=== PATIENT | female | born 1990 | race Caucasian/White ===

== ENCOUNTER 2018-07-08 22:25 | Emergency (ER) | payer SELFPAY ==
--- OUTSIDE RECORDS SUMMARY | 2018-07-08 22:27 | XMS REPORT | Clinical Summary ---
Author Author [facility] Organization [facility] Address Unknown Phone Unavailable Care Team Providers Care Crystal Report Developer Name Role Phone Kyle Sheppard MD PCP Allergies Comments Active Allergy Reactions Severity Noted Date Escitalopram Oxalate Nausea Only High 06/11/2018 Medications End Date Status Medication Sig Dispensed Refills Start Date Active varenicline (CHANTIX) 0.5 Start taking 332 tablet 0 mg tabletIndications: this 9 Encounter for smoking medication 1 cessation counseling week prior to setting a quit date for smoking. Stop smoking on day 8. Days 1 to 3: take 1 tablet once daily Days 4 to 7: take 1 tablet twice daily Day 8 to 84: take 2 tablets twice daily. Active amitriptyline (ELAVIL) 10 Take one tab 60 tablet 1 mg tabletIndications: PO qhs x 4 9 Somatic symptom disorder days, then increase to two tabs PO qhs for anxiety. 05/27/2018 Discontinued meclizine (ANTIVERT) 25 Take 0.5 10 tablet 0 mg TabIndications: tablets by 9 Dizziness mouth 2 times daily. 05/27/2018 Discontinued ibuprofen (MOTRIN) 800 mg Take 1 tablet 30 tablet 0 tabletIndications: by mouth 9 Nonintractable headache, every 8 hours unspecified chronicity as needed for pattern, unspecified Pain. headache type 06/11/2018 Discontinued escitalopram (LEXAPRO) 10 Take 1 tablet 90 tablet 1 mg tabletIndications: by mouth 9 Generalized anxiety daily. disorder with panic attacks 06/25/2018 Discontinued busPIRone (BUSPAR) 10 mg Take 1 tablet 90 tablet 1 tabletIndications: by mouth 3 9 Generalized anxiety times daily disorder with panic as needed attacks (Anxiety). 06/27/2018 nitrofurantoin Take 1 40 capsule 0 (MACRODANTIN) 100 mg capsule by 9 capsuleIndications: mouth 4 times Dysuria daily for 10 days. 06/27/2018 Discontinued amitriptyline (ELAVIL) 10 Take one tab 60 tablet 1 mg tabletIndications: PO qhs, then 9 Somatic symptom disorder increase to two tabs PO qhs for anxiety. Active Problems Problem Noted Date Tinnitus of both ears 06/11/2018 Intermittent palpitations 06/11/2018 Generalized anxiety disorder with panic attacks 05/27/2018 Encounters Care Team Description Date Type Specialty Dominique York MD Somatic symptom disorder 06/27/2018 Orders Only Psychiatry Dominique York MD Medications 06/27/2018 Telephone Psychiatry Marv Moreau MD History of chest pain (Primary Dx); Need for influenza vaccination; Encounter for smoking cessation counseling; Need for Tdap vaccination; Blurry vision 06/26/2018 Office Visit Family Practice Marv Moreau MD Blurry vision; History of chest pain 06/26/2018 Orders Only Family Practice Dominique York MD Somatic symptom disorder (Primary Dx) 06/25/2018 Office Visit Psychiatry 06/21/2018 Travel Chest pain, unspecified type (Primary Dx) 06/17/2018 Emergency Emergency Medicine 06/17/2018 Travel Jenny Romero RN 06/17/2018 Nurse Triage Cough 06/11/2018 Ancillary Radiology Procedure Kyle Sheppard MD Need for influenza vaccination (Primary Dx); Tinnitus of both ears; Generalized anxiety disorder with panic attacks; Cough; Dysuria; Intermittent palpitations 06/11/2018 Office Visit Family Practice Kyle Sheppard MD Generalized anxiety disorder with panic attacks 06/11/2018 Orders Only Family Practice Kyle Sheppard MD Need for influenza vaccination (Primary Dx); Generalized anxiety disorder with panic attacks 05/27/2018 Office Visit Family Kyle Azul MD Encounter to establish care (Primary Dx); Chest pain in adult; Dizziness; Viral syndrome 05/21/2018 Office Visit Family Practice 05/21/2018 Travel Raoul Duke NP 05/11/2018 Hospital Radiology Encounter Yin Esqueda MD Chest pain in adult (Primary Dx); Dizziness; Elevated blood pressure reading; Nonintractable headache, unspecified chronicity pattern, unspecified headache type 05/11/2018 Emergency Emergency Medicine 05/10/2018 Travel after 07/07/2017 Immunizations Name Dates Previously Given Next Due Influenza, 05/27/2018 (Deferred: Patient Refused) Vaccine<FLUCELVAX>(Multi- Dose) Family History Medical History Relation Name Comments Unknown Fam Hx Mother Relation Name Status Comments Mother Social History Date Tobacco Use Types Packs/Day Years Used Current Every Day Smoker Smokeless Tobacco: Never Used Tobacco Cessation: Ready to Quit: No; Counseling Given: Yes Alcohol Use Drinks/Week oz/Week Comments Yes socia; Sex Assigned at Date Recorded Not on file Industry Job Start Date Occupation Not on file Not on file Not on file Travel End Travel History Travel Start No recent travel history available. Last Filed Vital Signs Time Taken Vital Sign Reading 06/26/2018 3:41 PM CDT Blood Pressure 127/84 06/26/2018 3:41 PM CDT Pulse 105 06/26/2018 3:41 PM CDT Temperature 36.7 C (98 F) 06/26/2018 3:41 PM CDT Respiratory Rate 20 06/25/2018 2:26 PM CDT Oxygen Saturation 94% - Inhaled Oxygen - Concentration 06/26/2018 3:41 PM CDT Weight 102.5 kg (226 lb) 06/26/2018 3:41 PM CDT Height 149.9 cm (4' 11") 06/26/2018 3:41 PM CDT Body Mass Index 45.65 Plan of Treatment Care Team Description Date Type Specialty Dominique York MD [address] [place] [address] [phone] 07/29/2018 Office Visit Psychiatry Kyle Sheppard MD [address] [place] [address] [phone] 08/28/2018 Appointment Lizeth Melton OD [address] [place] [address] 09/23/2018 Office Visit Ophthalmology Health Maintenance Due Date Last Done Comments Cervical Cancer Scrn (3 2011 Yrs) IMM Influenza Seasonal 01/14/2018 Oct to June (>/=19 yrs) Procedures Comments Procedure Name Priority Date/Time Associated Diagnosis XRAY CHEST 2 VIEWS STAT 06/17/2018 Chest pain, unspecified 1:36 PM TEXTILE CONVERSION MANAGER type TROPONIN I POC Routine 06/17/2018 1:23 PM TEXTILE CONVERSION MANAGER BMP POC Routine 06/17/2018 1:22 PM TEXTILE CONVERSION MANAGER 12 LEAD EKG Routine 06/17/2018 12:37 PM TEXTILE CONVERSION MANAGER XRAY CHEST 2 VIEWS Routine 06/11/2018 Cough 3:32 PM TEXTILE CONVERSION MANAGER URINE CULTURE Routine 06/11/2018 Dysuria 3:22 PM TEXTILE CONVERSION MANAGER UA CHEMISTRIES Routine 06/11/2018 Dysuria 3:22 PM TEXTILE CONVERSION MANAGER FSH/LH Routine 06/11/2018 Generalized anxiety 3:21 PM TEXTILE CONVERSION MANAGER disorder with panic attacks CBC/DIFF Routine 05/21/2018 Encounter to establish 11:29 AM TEXTILE CONVERSION MANAGER care COMPREHENSIVE METABOLIC Routine 05/21/2018 Encounter to establish PANEL(DBIL NOT INCLUDED) 11:29 AM TEXTILE CONVERSION MANAGER care HEMOGLOBIN A1C Routine 05/21/2018 Encounter to establish 11:29 AM TEXTILE CONVERSION MANAGER care LIPID PROFILE Routine 05/21/2018 Encounter to establish 11:29 AM TEXTILE CONVERSION MANAGER care TSH Routine 05/21/2018 Encounter to establish 11:29 AM TEXTILE CONVERSION MANAGER care POCT URINE DIPSTICK - STAT 05/11/2018 1:44 AM TEXTILE CONVERSION MANAGER BMP POC Routine 05/11/2018 1:44 AM TEXTILE CONVERSION MANAGER UA CHEMISTRIES STAT 05/11/2018 1:40 AM TEXTILE CONVERSION MANAGER HIV-1/HIV-2 ROUTINE STAT 05/11/2018 SCREENING 1:37 AM TEXTILE CONVERSION MANAGER XRAY CHEST 2 VIEWS STAT 05/11/2018 Chest pain in adult 12:53 AM TEXTILE CONVERSION MANAGER 12 LEAD EKG Routine 05/11/2018 12:07 AM TEXTILE CONVERSION MANAGER after 07/07/2017 Results * XRAY CHEST 2 VIEWS (06/17/2018 1:36 PM TEXTILE CONVERSION MANAGER) Only the most recent of 3 results within the time period is included. Impressions Performed At IMPRESSION: SMS 1.No acute abnormality. This [facility] radiology report is a preliminary resident dictation until finalized by an attending.Changes to this preliminary report may occur in an additional preliminary or finalized version. Dictated By: Flavio Campbell MD, 06/17/2018 1:38 PM I have reviewed the study and agree with the findings in this report. Signed By: Silvio Zacarias MD, 06/17/2018 1:50 PM Narrative Performed At EXAM: XR CHEST 2 VIEWS [facility] DATE: 06/17/2018 1:36 PM INDICATION: Pleuritic chest pain. Chest pain, unspecified type COMPARISON: Chest x-ray on 06/11/2018 TECHNIQUE: PA and lateral chest radiographs FINDINGS: Lines, tubes and hardware: None. Lungs and pleura: The lungs are clear. The costophrenic sulci are sharp, without pleural effusion. No pneumothorax is identified. Heart and mediastinum: The heart size is normal. The mediastinal contours are normal. Pulmonary vascularity is normal. Bones: No acute bony abnormality. Procedure Note Interface, Rad/Mammog In - 06/17/2018 1:55 PM TEXTILE CONVERSION MANAGER EXAM: XR CHEST 2 VIEWS DATE: 06/17/2018 1:36 PM INDICATION: Pleuritic chest pain. Chest pain, unspecified type COMPARISON: Chest x-ray on 06/11/2018 TECHNIQUE: PA and lateral chest radiographs FINDINGS: Lines, tubes and hardware: None. Lungs and pleura: The lungs are clear. The costophrenic sulci are sharp, without pleural effusion. No pneumothorax is identified. Heart and mediastinum: The heart size is normal. The mediastinal contours are normal. Pulmonary vascularity is normal. Bones: No acute bony abnormality. IMPRESSION IMPRESSION: 1. No acute abnormality. This [facility] radiology report is a preliminary resident dictation until finalized by an attending. Changes to this preliminary report may occur in an additional preliminary or finalized version. Dictated By: Flavio Campbell MD, 06/17/2018 1:38 PM I have reviewed the study and agree with the findings in this report. Signed By: Silvio Zacarias MD, 06/17/2018 1:50 PM Performing Organization Address City/State/Zipcode Phone Number [facility] * TROPONIN I POC (06/17/2018 1:23 PM TEXTILE CONVERSION MANAGER) Troponin POC 0.00 0.00 - 0.08 ng/mL [facility] MAIN-STATION 1 Performing Organization Address City/[facility] Phone Number [facility] MAIN-STATION 1 * BMP POC (06/17/2018 1:22 PM TEXTILE CONVERSION MANAGER) Only the most recent of 2 results within the time period is included. CO2 POC 25Comment: Physician Notified 21 - 32 mmol/L [facility] MAIN-STATION 1 Chloride POC 105 98 - 107 mmol/L [facility] MAIN-STATION 1 Potassium POC 4.3 3.50 - 5.10 mmol/L [facility] MAIN-STATION 1 Sodium POC 143 136 - 145 mmol/L [facility] MAIN-STATION 1 Glucose POC 95 74 - 106 mg/dL [facility] MAIN-STATION 1 Urea Nitrogen 9 7 - 18 mg/dL [facility] P[facility] MAIN-STATION 1 Creatinine POC 0.7 0.6 - 1.3 mg/dL [facility] MAIN-STATION 1 Calcium Ionized 1.16 1.15 - 1.29 mmol/L [facility] MAIN-STATION 1 Hemoglobin POC 16.3 (H) 12.0 - 16.0 g/dL [facility] MAIN-STATION 1 Hematocrit POC 48.0 (H) 37.0 - 47.0 % [facility] MAIN-STATION 1 GFR, Estimated >60 mL/min/1.73 m2 [facility] MAIN-STATION 1 GFR, Estim, >60 mL/min/1.73 m2 [facility] Afr-Am MAIN-STATION 1 Performing Organization Address City/[facility] Phone Number [facility] MAIN-STATION 1 * 12 LEAD EKG (06/17/2018 12:37 PM TEXTILE CONVERSION MANAGER) 12 LEAD EKG FOR [facility] Date:2018-06-17 Pat Name: SCOOTER MARTINEZ Department: 6520 Room: Gender: Early Intervention Specialist: [id number] :1989-04 0- Requested By: ALEXEI Alamo Order Number: [id number] Reading MD: Jorge CASTANEDA Measurements Intervals [place] Rate: 90 P:42 KS: 156 QRS: 58 QRSD: 85 T:35 QT: 330 QTc:405 Interpretive Statements SINUS RHYTHM Minor Non-specific ST-T changes Otherwise Normal ECG Electronically Signed On 06-17-2018 17:01:19 TEXTILE CONVERSION MANAGER by Jorge CASTANEDA Performing Organization Address [facility] Phone Number SMS * UA CHEMISTRIES (06/11/2018 3:22 PM TEXTILE CONVERSION MANAGER) Only the most recent of 2 results within the time period is included. Color Yellow [facility] MAIN-STATION 3 Clarity Clear [facility] MAIN-STATION 3 Spec [place] 1.025 1.001 - 1.035 [facility] MAIN-STATION 3 pH 6.0 5 - 8 [facility] MAIN-STATION 3 Protein Negative NEG [facility] MAIN-STATION 3 Glucose Negative NEG [facility] MAIN-STATION 3 Ketone Negative NEG [facility] MAIN-STATION 3 Bilirubin Negative NEG [facility] MAIN-STATION 3 Nitrate Negative NEG [facility] MAIN-STATION 3 Urobilinogen <1.0 0.2 - 1.0 EU/dL [facility] MAIN-STATION 3 Leukocyte Negative NEG [facility] MAIN-STATION 3 Blood Negative NEG [facility] MAIN-STATION 3 Specimen Urine Performing Organization Address [facility] Phone Number MISYS [facility] MAIN-STATION 3 * URINE CULTURE (06/11/2018 3:22 PM TEXTILE CONVERSION MANAGER) Spec Urine [facility] Description Order Comments None [facility] Culture Skin roberto carlos organisms present, BT MICROBIOLOGY suggests contamination; please recollect Report Status Final 06/13/2018 BT MICROBIOLOGY Specimen Urine - CLEAN CATCH URINE Performing Organization Address [facility] Phone Number [facility] BT MICROBIOLOGY * FSH/LH (06/11/2018 3:21 PM TEXTILE CONVERSION MANAGER) FSH 5.75 mIU/mL [facility] MAIN-STATION Comment: 1 REFERENCE RANGE FEMALE: POST MENOPAUSAL:16.74-113.59 Mid-follicular:3.85-8.78 Female Mid-cycle:4.54-22.51 Mid-luteal:1.79-5.12 LH 11.02 mIU/mL [facility] MAIN-STATION Comment: 1 REFERENCE RANGE FEMALE: POST MENOPAUSAL 10.87-58.64 Mid-follicular2.12-10.89 Mid-cycle 4.54-22.51 Mid-luteal1.79-5.1 2 Specimen Blood Performing Organization Address City/[facility] Phone Number [facility] BT MAIN-STATION 1 * HEMOGLOBIN A1C (05/21/2018 11:29 AM TEXTILE CONVERSION MANAGER) Hemoglobin A1c 5.9 4.3 - 6.1 % BT DIAGNOSTIC IMMUNOLOGY Est Average 122.6 mg/dL BT DIAGNOSTIC Gluc IMMUNOLOGY Specimen Blood Performing Organization Address [facility] Phone Number [facility] BT DIAGNOSTIC IMMUNOLOGY * COMPREHENSIVE METABOLIC PANEL(DBIL NOT INCLUDED) (05/21/2018 11:29 AM TEXTILE CONVERSION MANAGER) Albumin 4.3 3.7 - 5.3 g/dL BT MAIN-STATION 1 Calcium 9.7 8.6 - 10.3 mg/dL BT MAIN-STATION 1 CO2 22 21 - 31 mmol/L BT MAIN-STATION 1 Chloride 105 98 - 107 mmol/L BT MAIN-STATION 1 Creatinine 0.70 0.6 - 1.2 mg/dL [facility] MAIN-STATION 1 Glucose 94 70 - 110 mg/dL [facility] MAIN-STATION 1 Alk Phos 64 34 - 104 U/L BT MAIN-STATION 1 Potassium 4.4 3.5 - 5.1 mmol/L BT MAIN-STATION 1 Sodium 140 136 - 145 mmol/L BT MAIN-STATION 1 ALT 27 7 - 52 U/L BT MAIN-STATION 1 AST 19 13 - 39 U/L BT MAIN-STATION 1 Urea Nitrogen 10 7 - 25 mg/dL [facility] MAIN-STATION 1 T Bilirubin 0.5 0.2 - 1.2 mg/dL BT MAIN-STATION 1 T Protein 7.3 6.0 - 8.3 g/dL BT MAIN-STATION 1 GFR, Estimated >60 mL/min/1.73 m2 BT MAIN-STATION 1 GFR, Estim, >60 mL/min/1.73 m2 BT MAIN-STATION Afr-Am 1 Anion Gap 13 BT MAIN-STATION 1 Specimen Blood Performing Organization Address [facility]/Zipcode Phone Number MISYS BT MAIN-STATION 1 * TSH (05/21/2018 11:29 AM TEXTILE CONVERSION MANAGER) TSH 1.48 0.57 - 3.74 uIU/mL BT MAIN-STATION 1 Specimen Blood Performing Organization Address [facility] Phone Number [facility] BT MAIN-STATION 1 * LIPID PROFILE (05/21/2018 11:29 AM TEXTILE CONVERSION MANAGER) Cholesterol 143 mg/dL [facility] MAIN-STATION Comment: 1 REFERENCE RANGE: Desirable: <200 mg/dL Borderline: 200-240 mg/dL High Risk: >240 mg/dL Triglyceride 105 <150 mg/dL [facility] MAIN-STATION Comment: 1 REFERENCE RANGE: Normal: <150 mg/dL Borderline High: 150-199 mg/dL High: 200-499 mg/dL Very High: >ua=867 mg/dL HDL 28 mg/dL [facility] MAIN-STATION Comment: 1 Increased CHD risk: <40 mg/dL Decreased CHD risk: >60 mg/dL LDL 94 mg/dL [facility] MAIN-STATION Comment: 1 REFERENCE RANGE: Optimal: <100 mg/dL Near Optimal: 100-129 mg/dL Borderline High: 130-159 mg/dL High: 160-189 mg/dL Very High: >sn=927 mg/dL Specimen Blood Performing Organization Address City/State/Zipcode Phone Number MISYS BT MAIN-STATION 1 * CBC/DIFF (05/21/2018 11:29 AM TEXTILE CONVERSION MANAGER) Pathologist [facility] WBC 8.6 4.5 - 11.0 K/uL BT MAIN-STATION 2 RBC 5.26 4.20 - 5.40 M/uL BT MAIN-STATION 2 Hemoglobin 15.6 12.0 - 16.0 g/dL BT MAIN-STATION 2 Hematocrit 47.3 (H) 37.0 - 47.0 % BT MAIN-STATION 2 MCV 90 82 - 92 fL BT MAIN-STATION 2 MCH 29.7 27.0 - 32.0 pg BT MAIN-STATION 2 MCHC 33.0 32.0 - 36.0 g/dL BT MAIN-STATION 2 RDW 38.4 36.4 - 46.3 fL BT MAIN-STATION 2 Platelet 318 150 - 400 K/uL BT MAIN-STATION 2 Mean Platelet 11.5 9.4 - 12.4 fL BT MAIN-STATION Volume 2 Percent NRBC 0.0 BT MAIN-STATION 2 Absolute NRBC 0.00 BT MAIN-STATION 2 Neutrophil 47.9 34.0 - 70.0 % BT MAIN-STATION 2 Lymphocyte 41.2 20.0 - 50.0 % BT MAIN-STATION 2 Monocyte 6.4 5.0 - 12.0 % BT MAIN-STATION 2 Eosinophil 2.9 0.7 - 5.0 % BT MAIN-STATION 2 Basophil 1.1 0.1 - 1.2 % BT MAIN-STATION 2 Pct Immat Gran 0.5 0.0 - 0.5 BT MAIN-STATION 2 Neutrophil, Abs 4.10 1.56 - 6.13 K/uL BT MAIN-STATION 2 Lymphocyte, Abs 3.52 1.18 - 3.74 K/uL BT MAIN-STATION 2 Monocyte, Abs 0.55 (H) 0.24 - 0.36 K/uL BT MAIN-STATION 2 Eosinophil, Abs 0.25 0.04 - 0.36 K/uL BT MAIN-STATION 2 Basophil, Abs 0.09 (H) 0.01 - 0.08 K/uL BT MAIN-STATION 2 Absol Immat 0.04 (H) 0.00 - 0.03 K/uL BT MAIN-STATION Gran 2 Specimen Blood Performing Organization Address City/State/Zipcode Phone Number [facility] BT MAIN-STATION 2 * POCT URINE DIPSTICK - (05/11/2018 1:44 AM TEXTILE CONVERSION MANAGER) PASS Control NEGATIVE * HIV-1/HIV-2 ROUTINE SCREENING (05/11/2018 1:37 AM TEXTILE CONVERSION MANAGER) HIV-1/HIV-2 Negative NEG [facility] Performing Organization Address City/State/Zipcode Phone Number [facility] B[facility]OD [facility] * 12 LEAD EKG (05/11/2018 12:07 AM TEXTILE CONVERSION MANAGER) 12 LEAD EKG FOR SMS [facility] Test Date:2018-05-11 Pat Name: SCOOTER MARTINEZ Department: 6520 Room: Gender: F Early Intervention Specialist: [id number] :1989-04 Requested By: MARGARITA Madrid Order Number: [id number] Jimmy MD: Marilyn Saeed Measurements Intervals [place] Rate: 114 P: 38 KS: 155 QRS: 53 QRSD: 88 T:34 QT: 319 QTc:439 Interpretive Statements SINUS TACHYCARDIA ABNORMAL RHYTHM ECG Electronically Signed On 05-13-2018 12:53:28 TEXTILE CONVERSION MANAGER by Marilyn Saeed Performing Organization Address City/State/Zipcode Phone Number [facility] after 07/07/2017 Insurance Type Payer Benefit Subscriber ID Effective Phone Address Plan / Dates Group [place]ICA[place] [id number] xxxxxxxxx 2018-P [id number] [facility] [id number] [facility] SELF-PAY [facility] xxxxxxxxx [phone]- [phone] [address] [place] [address]
--- OUTSIDE RECORDS SUMMARY | 2018-07-08 22:27 | XMS REPORT | Clinical Summary ---
Author Author [facility] Address Unknown Phone Unavailable Care Team Providers Care Casing Puller Name Role Phone Asked, No Pcp PCP Unavailable Allergies No Known Allergies Medications End Date Status Medication Sig Dispensed Refills Start Date 07/19/2018 Active nicotine (NICODERM CQ) 21 Place 1 patch 30 patch 0 06/19/ mg/24 hr on the skin 9 daily for 30 days. 10/17/2017 acetaminophen-codeine Take 1 tablet 10 tablet 0 (TYLENOL WITH CODEINE #3) by mouth 8 300-30 mg per tablet every 6 (six) hours as needed for moderate pain for up to 3 days. 10/21/2017 clindamycin (CLEOCIN) 300 Take 1 28 capsule 0 MG capsule capsule (300 8 mg total) by mouth 4 (four) times a day for 7 days. 05/17/2018 naproxen (NAPROSYN) 500 Take 1 tablet 60 tablet 0 04/17/201 MG tablet (500 mg 9 total) by mouth 2 (two) times a day with meals for 30 days. 05/02/2018 acetaminophen-codeine Take 1-2 15 tablet 0 201 (TYLENOL WITH CODEINE #3) tablets by 9 300-30 mg per tablet mouth every 6 (six) hours as needed for moderate pain for up to 15 days. 05/30/2018 acetaminophen-codeine Take 1-2 15 tablet 0 05/15/201 (TYLENOL WITH CODEINE #3) tablets by 9 300-30 mg per tablet mouth every 6 (six) hours as needed for moderate pain for up to 15 days. 06/25/2018 ALPRAZolam (XANAX) 0.25 Take 1 tablet 14 tablet 0 06/18/201 MG tablet (0.25 mg 9 total) by mouth 2 (two) times a day as needed for anxiety for up to 7 days. Active Problems Problem Noted Date Chest pain, rule out acute myocardial infarction 06/17/2018 Encounters Care Team Description Date Type Specialty Jeremiah Rincon MD Bavare, Arusha Amod, MD Chest pain, rule out acute myocardial infarction (Primary Dx) 06/17/2018 Emergency General Internal Medicine - 06/18/2018 Jeremiah Rincon MD 06/05/2018 Emergency Emergency Medicine González Turner Jr., MD Chest pain, unspecified type (Primary Dx) 05/25/2018 Emergency Emergency Medicine Jeremiah Rincon MD Costochondritis, acute (Primary Dx) 05/15/2018 Emergency Emergency Medicine Jeremiah Rincon MD Costochondritis (Primary Dx) 04/17/2018 Emergency Emergency Medicine González Turner Jr., MD Abscess of left leg (Primary Dx); Cellulitis of left leg 10/14/2017 Emergency Emergency Medicine after 07/07/2017 Family History Medical History Relation Name Comments Hypertension Father Hypertension Mother Stroke Mother Relation Name Status Comments Brother Alive Father Alive Mother Alive Sister Alive Social History Date Tobacco Use Types Packs/Day Years Used Current Every Day Smoker Cigarettes 1 10 Smokeless Tobacco: Never Used Tobacco Cessation: Ready to Quit: No; Counseling Given: Yes Alcohol Use Drinks/Week oz/Week Comments No Sex Assigned at Date Recorded Not on file Industry Job Start Date Occupation Not on file Not on file Not on file Travel End Travel History Travel Start No recent travel history available. Last Filed Vital Signs Time Taken Vital Sign Reading 06/18/2018 1:44 PM OIL LABORATORY ANALYST Blood Pressure 132/87 06/18/2018 1:44 PM OIL LABORATORY ANALYST Pulse 73 06/18/2018 1:44 PM OIL LABORATORY ANALYST Temperature 36.3 C (97.3 F) 06/18/2018 1:44 PM OIL LABORATORY ANALYST Respiratory Rate 16 06/18/2018 1:44 PM OIL LABORATORY ANALYST Oxygen Saturation 98% - Inhaled Oxygen - Concentration 06/18/2018 1:43 AM OIL LABORATORY ANALYST Weight 103 kg (227 lb 15.3 oz) 06/17/2018 9:18 PM OIL LABORATORY ANALYST Height 157.5 cm (5' 2") 06/18/2018 1:43 AM OIL LABORATORY ANALYST Body Mass Index 41.69 Plan of Treatment Health Maintenance Due Date Last Done Comments CERVICAL CANCER SCREENING 2011 INFLUENZA VACCINE 11/14/2017 Procedures Comments Procedure Name Priority Date/Time Associated Diagnosis ECHOCARDIOGRAM 2D Routine 06/18/2018 COMPLETE W MMODE SPECTRAL 11:55 AM OIL LABORATORY ANALYST COLOR DOPPLER (08029) TROPONIN Timed 06/18/2018 11:22 AM OIL LABORATORY ANALYST TROPONIN Routine 06/18/2018 7:19 AM OIL LABORATORY ANALYST ESTIMATED GFR Routine 06/18/2018 7:19 AM OIL LABORATORY ANALYST LIPID PANEL Routine 06/18/2018 7:19 AM OIL LABORATORY ANALYST BASIC METABOLIC PANEL Routine 06/18/2018 7:19 AM OIL LABORATORY ANALYST HC COMPLETE BLD COUNT Routine 06/18/2018 W/AUTO DIFF 7:19 AM OIL LABORATORY ANALYST ECG 12-LEAD STAT 06/18/2018 4:37 AM OIL LABORATORY ANALYST ESTIMATED GFR STAT 06/17/2018 11:00 PM OIL LABORATORY ANALYST B NATRIURETIC PEPTIDE STAT 06/17/2018 11:00 PM OIL LABORATORY ANALYST TROPONIN STAT 06/17/2018 11:00 PM OIL LABORATORY ANALYST COMPREHENSIVE METABOLIC STAT 06/17/2018 PANEL 11:00 PM OIL LABORATORY ANALYST HC COMPLETE BLD COUNT STAT 06/17/2018 W/AUTO DIFF 11:00 PM OIL LABORATORY ANALYST XR CHEST 2 VW STAT 06/17/2018 10:11 PM OIL LABORATORY ANALYST ECG ED PRELIMINARY Routine 06/17/2018 INTERPRETATION 9:26 PM OIL LABORATORY ANALYST ECG 12-LEAD STAT 06/17/2018 9:23 PM OIL LABORATORY ANALYST ECG ED PRELIMINARY Routine 05/25/2018 INTERPRETATION 7:42 PM OIL LABORATORY ANALYST XR CHEST 2 VW STAT 05/25/2018 7:15 PM OIL LABORATORY ANALYST ESTIMATED GFR STAT 05/25/2018 5:40 PM OIL LABORATORY ANALYST B NATRIURETIC PEPTIDE STAT 05/25/2018 5:40 PM OIL LABORATORY ANALYST TROPONIN STAT 05/25/2018 5:40 PM OIL LABORATORY ANALYST COMPREHENSIVE METABOLIC STAT 05/25/2018 PANEL 5:40 PM OIL LABORATORY ANALYST HC COMPLETE BLD COUNT STAT 05/25/2018 W/AUTO DIFF 5:40 PM OIL LABORATORY ANALYST ECG 12-LEAD STAT 05/25/2018 5:04 PM OIL LABORATORY ANALYST ESTIMATED GFR STAT 05/15/2018 4:36 AM OIL LABORATORY ANALYST B NATRIURETIC PEPTIDE STAT 05/15/2018 4:36 AM OIL LABORATORY ANALYST TROPONIN STAT 05/15/2018 4:36 AM OIL LABORATORY ANALYST COMPREHENSIVE METABOLIC STAT 05/15/2018 PANEL 4:36 AM OIL LABORATORY ANALYST HC COMPLETE BLD COUNT STAT 05/15/2018 W/AUTO DIFF 4:36 AM OIL LABORATORY ANALYST XR CHEST 2 VW STAT 05/15/2018 3:42 AM OIL LABORATORY ANALYST ECG ED PRELIMINARY Routine 05/15/2018 INTERPRETATION 3:22 AM OIL LABORATORY ANALYST ECG 12-LEAD STAT 05/15/2018 3:18 AM OIL LABORATORY ANALYST CT ANGIOGRAM PE CHEST STAT 04/17/2018 6:07 AM OIL LABORATORY ANALYST ECG ED PRELIMINARY Routine 04/17/2018 INTERPRETATION 5:00 AM OIL LABORATORY ANALYST XR CHEST 2 VW STAT 04/17/2018 4:33 AM OIL LABORATORY ANALYST D-DIMER STAT 04/17/2018 4:08 AM OIL LABORATORY ANALYST ESTIMATED GFR STAT 04/17/2018 4:08 AM OIL LABORATORY ANALYST HCG QUALITATIVE, SERUM STAT 04/17/2018 SCREEN 4:08 AM OIL LABORATORY ANALYST B NATRIURETIC PEPTIDE STAT 04/17/2018 4:08 AM OIL LABORATORY ANALYST TROPONIN STAT 04/17/2018 4:08 AM OIL LABORATORY ANALYST COMPREHENSIVE METABOLIC STAT 04/17/2018 PANEL 4:08 AM OIL LABORATORY ANALYST HC COMPLETE BLD COUNT STAT 04/17/2018 W/AUTO DIFF 4:08 AM OIL LABORATORY ANALYST ECG 12-LEAD STAT 04/17/2018 2:45 AM OIL LABORATORY ANALYST PA DRAIN SKIN ABSCESS Routine 10/14/2017 SIMPLE 7:28 AM CDT after 07/07/2017 Results * Echocardiogram complete w contrast and 3D if needed (06/18/2018 11:55 AM OIL LABORATORY ANALYST) Ao Root Diameter 2.96 cm [facility] AoV Area, Vmax 2.83 cm2 [facility] AoV Area, VTI 2.56 cm2 [facility] AoV Mean PG 3.32 mmHg [facility] AoV Peak PG 5.78 mmHg [facility] AoV Vmax 1.20 m/s [facility] AoV VTI 0.23 m [facility] BSA Pool 2.21 m2 [facility] BSA 2.02 m2 [facility] IVS,d 0.84 cm [facility] IVS/LVPW,2D 1.07 [facility] Left Atrium Dimension 3.07 cm [facility] Anterior LV,d 4.32 cm [facility] LV EF,2D 50.85 % [facility] LV,s 3.41 cm [facility] LVOT area 2.66 cm2 [facility] LVOT Diam,S 1.84 cm [facility] LVOT Vmax 1.27 m/s [facility] LVOT VTI 0.22 m [facility] LVPWD,d 0.79 cm [facility] PV Mean Grad 2.31 mmHg [facility] PV Pk Grad 2.99 mmHg [facility] PV VMAX 0.69 m/s [facility] PV VTI 0.22 m [facility] TR Vpeak 1.76 mm/s [facility] MV E A ratio 1.37 [facility] TR pk grad 12.46 mmHg [facility] AoV area i VTI BSA [place] 1.27 cm2/m2 [facility] PV Vmn 0.71 [facility] BMI 41.52 kg/m2 [facility] E wave decelartion time 216.22 msec [facility] MV Peak A Jose 0.74 m/s [facility] MV valve area p 1/2 3.51 cm2 [facility] method MV Peak E Jose 1.02 m/s [facility] MV stenosis pressure 1/2 62.70 ms [facility] time AV LVOT peak gradient 6.48 mmHg [facility] Ascending aorta 2.45 cm [facility] Ao Root Diameter 2.96 cm [facility] MV mean gradient 1.69 mmHg [facility] LV SYS VOL 47.81 ml [facility] LV RAMOS VOL 84.09 ml [facility] LA area s A4C 15.86 cm2 [facility] LV SI Teich 2D 17.98 ml/m2 [facility] LV SV Teich 2D 36.28 ml [facility] LV Vol s Teich PSAX 47.81 ml [facility] LVOT CI 2.50 l/min/m2 [facility] LVOT CO 5.04 l/min [facility] LVOT HR for LVOT CO 84.08 bpm [facility] LVOT SI 29.74 ml/m2 [facility] MR peak grad 3.37 mmHg [facility] MV Vmax 0.92 m [facility] MV VTI Tips 0.20 m [facility] BSA [place] 2.18 m2 [facility] AoV Vmn 0.86 [facility] IVS s 2D 0.91 [facility] LV FS Teich 2D 21.08 [facility] MV AE ratio 0.73 [facility] LV FS Cube 2D 21.08 [facility] LVOT Vmn 0.80 [facility] Pt Size 157.48 [facility] Pt Wt 102.97 [facility] Aov area Vmn 2.49 cm2 [facility] LVOT mean grad 2.98 mmHg [facility] MAX Pred HR 191.64 [facility] 85 of MPHR 162.89 [facility] AoV area I VMN bsa 1.23 cm2/m2 [facility] Calc MPHR 191.64 bpm [facility] IVS pct thck PLAX 8.03 % [facility] LV SI Cube 2D 20.36 ml/m2 [facility] LV SV Cube 2D 41.06 ml [facility] LV vol d cube 2D 80.76 ml [facility] LV vol s cube 2D 39.69 ml [facility] LVPW pct thck PLAX 21.12 % [facility] LVPW s PLAX 0.96 cm [facility] MV Decel slope 4.70 m/s2 [facility] Pred Exer Dur R1 11.33 [facility] Pred METS R1 11.01 [facility] LA Vol MOD A4C 35.24 ml [facility] Velocity Ratio (V1/V2) 1.06 m/s [facility] EF 43.14 % [facility] E/A ratio 1.38 [facility] Narrative Performed At [facility] Left Ventricular ejection fraction is 60 - 65% Normal left ventricular wall thickness and regional wall motion No significant valvular abnormalities. Performing Organization Address City/State/Zipcode Phone Number [facility] [address] [place] [address] * Troponin (06/18/2018 11:22 AM OIL LABORATORY ANALYST) Only the most recent of 6 results within the time period is included. Troponin <0.30 0.00 - 0.30 ng/mL [facility] Comment: [facility] 0.11 - 1.49 ng/mlMay indicate increased risk of acute coronary syndrome. >=1.5 ng/ml Consistent with acute myocardial infarction. The diagnostic value of a single normal or non-diagnostic result is questionable.Serial samples at 2-6 hour intervals are required to rule out acute myocardial injury. Specimen Plasma specimen Performing Organization Address City/[facility] Phone Number [facility] DE[facility] [address] [facility] [place] [phone] PATHOLOGY AND GENOMIC MEDICINE [address] * Estimated GFR (06/18/2018 7:19 AM OIL LABORATORY ANALYST) Only the most recent of 5 results within the time period is included. Estimated GFR >=90 mL/min/1.73 m2 [facility] Comment: [facility] CatergoryUnitsInte rpretation G1 >=90 Normal or high G2 60-89Mildly decreased [id number] Mildly to moderately decreased [id number] Moderately to severely decreased G4 15-29Severely decreased G5 <15Kidney failure The eGFR was calculated using the Chronic Kidney Disease Epidemiology Collaboration (CKD-EPI) equation. Interpretation is based on recommendations of the National Kidney Foundation-Kidney Disease Outcomes Quality Initiative (NKF-KDOQI) published in 2014. Specimen Plasma specimen Performing Organization Address City/[facility]/Zipcode Phone Number [facility] [address] [place] [address] PATHOLOGY AND GENOMIC MEDICINE [facility] [address] * CBC with platelet and differential (06/18/2018 7:19 AM OIL LABORATORY ANALYST) Only the most recent of 5 results within the time period is included. WBC 10.3 4.2 - 11.0 k/uL [facility] RBC 4.87 4.04 - 5.86 m/uL [facility] HGB 14.3 11.5 - 15.3 g/dL [facility] HCT 43.3 34.0 - 45.0 % [facility] MCV 88.9 80.0 - 98.0 fL [facility] MCH 29.4 27.0 - 34.0 pg [facility] MCHC 33.0 31.5 - 36.5 g/dL [facility] RDW - SD 37.5 37.0 - 51.0 fL [facility] MPV 10.6 (H) 7.4 - 10.4 fL [facility] Platelet count 268 150 - 400 k/uL [facility] Nucleated RBC 0.00 /100 WBC [facility] Neutrophils 42.3 36.0 - 66.0 % [facility] Lymphocytes 47.5 (H) 24.0 - 44.0 % [facility] Monocytes 6.5 (H) 0.0 - 6.0 % [facility] Eosinophils 2.5 0.0 - 6.0 % [facility] Basophils 0.9 0.0 - 1.2 % [facility] Immature granulocytes 0.3 0.0 - 1.0 % [facility] Specimen Blood Performing Organization Address City/State/Zipcode Phone Number [facility] OF [address] [place] [address] PATHOLOGY AND GENOMIC MEDICINE [place] [address] [address] [place] * Lipid panel (06/18/2018 7:19 AM OIL LABORATORY ANALYST) Cholesterol 129 0 - 199 mg/dL [facility] Triglycerides 81 0 - 149 mg/dL [facility] HDL cholesterol 25 (L) 40 - 9,999 mg/dL [facility] LDL cholesterol 102 (H)Comment: Result 0 - 99 mg/dL [facility] obtained by direct LDL [facility] measurement Lipid panel See below [facility] interpretation Comment: [facility] Total Cholesterol (mg/dL) LDL Cholesterol (mg/dL) <200 Desirable <100 Optimal 200-239Borderline -[id number] or above optimal >=240High 130-159Borderline- high 160-189High >=190Very high HDL Cholesterol (mg/dL) Triglycerides (mg/dL) <40Low <150 Normal >=60 High 150-199Borderline- high 200-499High >=500Very high Risk Catergories that modify LDL goals. Risk Catergories LDL goal (mg/dL) CHD and CHD risk equivalent <100 (10-year risk >20%) Multiple (2+) risk factors <130 (10-year risk=<20%) 0-1 risk factors <160 (<10-year risk) Defining levels of lipids in metabolic syndrome Triglycerides >=150 mg/dL HDL Cholesterol Men <40 mg/dL Women <50 mg/dL Non-HDL cholesterol is a second target for therapy in persons with high triglycerides (>=200 mg/dL) Specimen Plasma specimen Performing Organization Address City/State/Zipcode Phone Number [facility] OF [address] [place] [address] PATHOLOGY AND GENOMIC MEDICINE [place] [address] * Basic metabolic panel (06/18/2018 7:19 AM OIL LABORATORY ANALYST) Sodium 141 135 - 150 mEq/L [facility] Potassium 4.0 3.5 - 5.0 mEq/L [facility] Chloride 105 98 - 112 mEq/L [facility] CO2 25 24 - 31 mmol/L [facility] Anion gap 11@ANIO 7 - 15 mEq/L [facility] BUN 10 7 - 18 mg/dL [facility] Creatinine 0.70 0.50 - 0.90 mg/dL [facility] Glucose 129 (H) 65 - 100 mg/dL [facility] Calcium 8.8 8.3 - 10.2 mg/dL [facility] Specimen Plasma specimen Performing Organization Address City/[facility]/Zipcode Phone Number [facility] OF [address] [facility] [place] [address] PATHOLOGY AND GENOMIC MEDICINE [address] * ECG 12 lead (06/18/2018 4:37 AM OIL LABORATORY ANALYST) Only the most recent of 5 results within the time period is included. Ventricular rate 73 [facility] Atrial rate 73 [facility] PA interval 172 [facility] QRSD interval 82 [facility] QT interval 406 [facility] QTC interval 447 [facility] P axis 1 59 [facility] QRS axis 1 64 [facility] T wave axis 51 [facility] EKG impression Normal sinus rhythm with sinus [facility] arrhythmia-Normal ECG-No previous ECGs available- Narrative Performed At Performing Organization Address [facility] Phone Number [facility] MUSE [address] [place] [address] * B natriuretic peptide (06/17/2018 11:00 PM OIL LABORATORY ANALYST) Only the most recent of 4 results within the time period is included. BNP 4 0 - 100 pg/mL [facility] Specimen Blood Performing Organization Address City/[facility]/Zipcode Phone Number [facility] OF [address] [facility] [place] [address] PATHOLOGY AND GENOMIC MEDICINE [address] * Comprehensive metabolic panel (06/17/2018 11:00 PM OIL LABORATORY ANALYST) Only the most recent of 4 results within the time period is included. Sodium 139 135 - 150 mEq/L [facility] Potassium 3.8 3.5 - 5.0 mEq/L [facility] Chloride 102 98 - 112 mEq/L [facility] CO2 24 24 - 31 mmol/L [facility] Anion gap 13@ANIO 7 - 15 mEq/L [facility] BUN 10 7 - 18 mg/dL [facility] Creatinine 0.70 0.50 - 0.90 mg/dL [facility] Glucose 105 (H) 65 - 100 mg/dL [facility] Calcium 9.9 8.3 - 10.2 mg/dL [facility] Protein 7.8 6.3 - 8.3 g/dL [facility] Albumin 4.2 3.5 - 5.0 g/dL [facility] A/G ratio 1.2 0.7 - 3.8 [facility] Alkaline phosphatase 72 0 - 104 U/L [facility] AST 24 10 - 35 U/L [facility] ALT 38 5 - 50 U/L [facility] Total bilirubin 0.3 0.2 - 1.2 mg/dL [facility] Specimen Plasma specimen Performing Organization Address City/State/Zipcode Phone Number [facility] OF [address] [place] [phone] PATHOLOGY AND GENOMIC MEDICINE [place] [address] [address] * XR Chest 2 Vw (06/17/2018 10:11 PM OIL LABORATORY ANALYST) Only the most recent of 4 results within the time period is included. Narrative Performed At Examination:XR CHEST 2 VW [facility] Clinical History: chest pain Comparison: None. Technique: PA and lateral views of the chest were obtained. Findings: The lungs are free of infiltrate. The heart size is normal. No pleural effusion is seen. Impression: No active cardiopulmonary disease identified. [facility]-[id number] Procedure Note Hm Interface, Radiology Results Incoming - 06/17/2018 10:17 PM OIL LABORATORY ANALYST Examination: XR CHEST 2 VW Clinical History: chest pain Comparison: None. Technique: PA and lateral views of the chest were obtained. Findings: The lungs are free of infiltrate. The heart size is normal. No pleural effusion is seen. Impression: No active cardiopulmonary disease identified. [facility]-[id number] Performing Organization Address City/State/Zipcode Phone Number [facility] [address] [place] [address] * ECG ED Preliminary Interpretation - Not an Order (06/17/2018 9:26 PM OIL LABORATORY ANALYST) Only the most recent of 4 results within the time period is included. Narrative Performed At Jeremiah Rincon MD 06/20/2018 12:23 AM ECG ED Preliminary Interpretation - Not an Order Performed by: Jeremiah Rincon MD Authorized by: Jeremiah Rincon MD ECG reviewed by ED Physician in the absence of a newsagent: yes Interpretation: Interpretation: abnormal Rate: ECG rate:101 bpm ECG rate assessment: tachycardic Rhythm: Rhythm: sinus tachycardia Ectopy: Ectopy: none QRS: QRS axis:Normal QRS intervals:Normal Conduction: Conduction: normal ST segments: ST segments:Normal T waves: T waves: normal * CT Angiogram Pe Chest (04/17/2018 6:07 AM OIL LABORATORY ANALYST) Narrative Performed At EXAMINATION: [facility] CT ANGIOGRAM PE CHEST CLINICAL HISTORY:28 years Female elevated d dimerCP TECHNIQUE:CT angiographic images of the chest were obtained during intravenous administration of iodinated contrast. Computerized reformatted images and 3-D MIP images were also obtained and archived (CT pulmonary embolus protocol). CT imaging was performed with iterative reconstruction techniques and/or automated exposure control to reduce radiation dose. COMPARISON: 11/05/2013 FINDINGS: CHEST: Pulmonary arteries: No evidence of acute pulmonary embolism. Lungs and airways: No acute airspace disease or suspicious pulmonary nodules. Pleura: No pleural effusion or pneumothorax. Mediastinum and lymph nodes: No mediastinal or hilar mass. No mediastinal adenopathy. Small bilateral axillary lymph nodes. Cardiovascular: The heart size is normal. There is lipomatous hypertrophy of the interatrial septum. No pericardial effusion. Upper abdomen: No suspicious abnormalities. 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 There are no suspicious bony abnormalities. Other: None. IMPRESSION: 1.No CT evidence of acute pulmonary thromboembolic disease. 2.No acute abnormality of the chest. [facility]-[id number] Procedure Note Interface, Radiology Results Incoming - 04/17/2018 6:23 AM OIL LABORATORY ANALYST EXAMINATION: CT ANGIOGRAM PE CHEST CLINICAL HISTORY:28 years Female elevated d dimer CP TECHNIQUE: CT angiographic images of the chest were obtained during intravenous administration of iodinated contrast. Computerized reformatted images and 3-D MIP images were also obtained and archived (CT pulmonary embolus protocol). CT imaging was performed with iterative reconstruction techniques and/or automated exposure control to reduce radiation dose. COMPARISON: 11/05/2013 FINDINGS: CHEST: Pulmonary arteries: No evidence of acute pulmonary embolism. Lungs and airways: No acute airspace disease or suspicious pulmonary nodules. Pleura: No pleural effusion or pneumothorax. Mediastinum and lymph nodes: No mediastinal or hilar mass. No mediastinal adenopathy. Small bilateral axillary lymph nodes. Cardiovascular: The heart size is normal. There is lipomatous hypertrophy of the interatrial septum. No pericardial effusion. Upper abdomen: No suspicious abnormalities. 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 There are no suspicious bony abnormalities. Other: None. IMPRESSION: 1. No CT evidence of acute pulmonary thromboembolic disease. 2. No acute abnormality of the chest. [facility]-[id number] Performing Organization Address City/[facility]/Zipcode Phone Number [facility] [address] [place] [address] * D-dimer (04/17/2018 4:08 AM OIL LABORATORY ANALYST) D-dimer 0.59 (H) 0.00 - 0.40 ug/mL FEU [facility] Comment: [facility] Units are ug/ml Fibrinogen Equivalent Unit. When combined with low clinical probability, D-dimer results of less than 0.5 ug/ml FEU have a good negativepredictive value in excluding PE or DVT. For D-dimer results greater than 0.5ug/ml FEU further testing is indicated if PE or DVT is suspectedclinically. Elevated D-dimer results have been reported in DVT, PE, and DIC cases and may indicate the presence of a clot. D-dimer results may be elevated due to old age, , inflammatory diseases, trauma, post-operative states, sepsis, and malignancies. Specimen Blood Performing Organization Address City/State/Zipcode Phone Number [facility] [address] [place] [address] PATHOLOGY AND GENOMIC MEDICINE [place] [address] [place], [place] [phone] [place] [address] * hCG qualitative, serum screen (04/17/2018 4:08 AM OIL LABORATORY ANALYST) hCG qualitative, serum Negative [facility] Comment: [facility] The manufacturers stated sensitivity of HcG test for serum is >/=10 mIU/ml and urine is >/=20mIU/ml. Specimen Blood Performing Organization Address City/State/Zipcode Phone Number [facility] [address] [place] [phone] PATHOLOGY AND GENOMIC MEDICINE [facility] [address] * INCISION AND DRAINAGE (10/14/2017 7:28 AM CDT) Narrative Performed At SAMANTHA Mccallum 10/14/20179:24 AM I&D/Aspiration/Amputation Performed by: AISSATOU MARIE Authorized by: GONZÁLEZ TURNER JR. Consent: Consent obtained:Verbal Consent given by:Patient Risks discussed:Bleeding, damage to other organs, infection, incomplete drainage and pain Alternatives discussed:Delayed treatment Location: Type:Abscess Location:Lower extremity Lower extremity location:L leg Pre-procedure details: Skin preparation:Betadine Anesthesia (see MAR for exact dosages): Anesthesia method:Local infiltration Local anesthetic:Lidocaine 1% w/o epi Procedure details: Complexity:Simple Needle aspiration: No Incision types:Stab incision Size (cm):1 Scalpel blade:11 Wound management:Irrigated with saline Drainage:Serosanguinous and purulent Drainage amount:Moderate Wound treatment:Wound left open Packing materials:1/4 in gauze Post-procedure details: Patient tolerance of procedure:Tolerated well, no immediate complications after 07/07/2017 Insurance Payer Benefit Subscriber ID Type Phone Address Plan / Group MEDICAID MEDICAID xxxxxxxxx Medicaid Advance Directives Patient has advance care planning documents on file. For more information, johnathon avila contact: Livan Antoine [address] [place] [address]
--- OUTSIDE RECORDS SUMMARY | 2018-07-08 22:28 | XMS REPORT ---
[facility] Address Unknown Phone Unavailable Care Team Providers Care Building Code Administrator Name Role Phone Unavailable Unavailable Payers Payer Name Policy Type Policy Number Effective Date Expiration Date Problems This patient has no known problems. Allergies, Adverse Reactions, Alerts Allergy Name Allergy Type Status Severity Reaction(s) Onset Date Inactive Date Treating Clinician Comments No Known Allergies DA Active U 2015-12-28 00:00:00 Medications This patient has no known medications. Encounters Start Date/Time End Date/Time Encounter Type Admission Type Attending Clinicians Care Facility Care Department Encounter ID 2018-09-23 00:00:00 2018-09-23 00:00:00 Outpatient [facility] [id number] 2018-08-28 00:00:00 2018-08-28 00:00:00 Outpatient [facility] [id number] 2018-07-29 00:00:00 2018-07-29 00:00:00 Outpatient [facility] [id number] 2018-07-25 00:00:00 2018-07-25 00:00:00 Outpatient [facility] [id number] 2018-07-01 00:00:00 2018-07-01 00:00:00 Outpatient [facility] [id number] 2018-06-26 15:41:41 2018-06-26 15:41:41 Outpatient [facility] [id number] 2018-06-25 14:26:24 2018-06-25 14:26:24 Outpatient [facility] [id number] 2018-06-21 00:00:00 2018-06-21 00:00:00 Outpatient [facility] [id number] 2018-06-17 13:28:09 2018-06-17 13:28:09 Emergency [facility] [id number] 2018-06-17 12:28:00 2018-06-17 12:28:00 Emergency [facility] [id number] 2018-06-11 15:31:40 2018-06-11 15:31:40 Outpatient [facility] [id number] 2018-06-11 15:29:55 2018-06-11 15:29:55 Outpatient [facility] [id number] 2018-06-11 14:38:18 2018-06-11 14:38:18 Outpatient [facility] [id number] 2018-06-10 00:00:00 2018-06-10 00:00:00 Outpatient [facility] [id number] 2018-05-27 08:33:03 2018-05-27 08:33:03 Outpatient [facility] [id number] 2018-05-21 11:36:41 2018-05-21 11:36:41 Outpatient [facility] [id number] 2018-05-21 09:50:20 2018-05-21 09:50:20 Outpatient [facility] [id number] 2018-05-11 00:34:36 2018-05-11 00:34:36 Outpatient [facility] [id number] 2018-05-11 00:24:08 2018-05-11 00:24:08 Emergency [facility] [id number] Results Test Description Test Time Test Comments Text Results Atomic Results Result Comments BASIC METABOLIC PANEL 2018-07-07 23:16:00 SODIUM (test code=NA) 143 mmol/L 128-145 POTASSIUM (test code=K) 3.8 mmol/L 3.5-5.1 CHLORIDE (test code=CL) 105.0 mmol/L 98-107 CARBON DIOXIDE (test code=CO2) 27.0 mmol/L 22-29 ANION GAP (test code=GAP) 15 mmol/L 10-20 GLUCOSE (test code=GLU) 108 mg/dL 70-110 BLOOD UREA NITROGEN (test code=BUN) 10 mg/dL 7-22 GLOMERULAR FILTRATION RATE (test code=GFR) > 60 mL/min >=60 Estimated GFR by using Modified MDRD formula.Chronic kidney disease is defined as either kidney damageor GFR <60 mL/min/1.73 m2 for >3 months. CREATININE (test code=CREAT) 0.75 mg/dL 0.55-1.3 BUN/CREATININE RATIO (test code=BUN/CREA) 13.3 10-20 CALCIUM (test code=CA) 8.9 mg/dL 8.0-10.5 HCG SERUM [id number] 23:16:00* Test Item Value Reference Range Comments HCG SERUM QUAL (test code=HCGQL) NEGATIVE NEGATIVE This HCGQL test is NOT applicable for MALE patients.Check with nurse about probable order error.If Tumor Marker Test needed, nurse should order test "HCGTU"(Test #550.85954) [id number] 23:16:00* Test Item Value Reference Range Comments TROPONIN-I (test code=TROPI) <0.015 ng/mL 0.00-0.056 BASIC METABOLIC [id number] 23:09:00* Test Item Value Reference Range Comments SODIUM (test code=NA) mmol/L 136-145 POTASSIUM (test code=K) mmol/L 3.5-5.1 CHLORIDE (test code=CL) mmol/L 98-107 CARBON DIOXIDE (test code=CO2) mmol/L 21-32 ANION GAP (test code=GAP) mmol/L 10-20 GLUCOSE (test code=GLU) mg/dL 70-110 BLOOD UREA NITROGEN (test code=BUN) mg/dL 7-22 GLOMERULAR FILTRATION RATE (test code=GFR) mL/min >=60 CREATININE (test code=CREAT) mg/dL 0.55-1.02 BUN/CREATININE RATIO (test code=BUN/CREA) 10-20 CALCIUM (test code=CA) mg/dL 8.5-10.1 HCG SERUM [id number] 23:09:00* Test Item Value Reference Range Comments HCG SERUM QUAL (test code=HCGQL) NEGATIVE NEGATIVE This HCGQL test is NOT applicable for MALE patients.Check with nurse about probable order error.If Tumor Marker Test needed, nurse should order test "HCGTU"(Test #550.92342) [id number] 23:09:00* Test Item Value Reference Range Comments TROPONIN-I (test code=TROPI) ng/mL 0-0.045 CBC W/O [id number] 23:05:00* Test Item Value Reference Range Comments WHITE BLOOD CELL (test code=WBC) 10.3 K/mm3 4.5-12.5 RED BLOOD CELL (test code=RBC) 5.19 mill/mm3 3.7-5.2 HEMOGLOBIN (test code=HGB) 15.2 gram/dL 11.5-15.5 HEMATOCRIT (test code=HCT) 45.3 % 36.0-46.0 MEAN CELL VOLUME (test code=MCV) 87.3 fL 80-98 MEAN CELL HGB (test code=MCH) 29.3 picogram 27.0-33.0 MEAN CELL HGB CONCETRATION (test code=MCHC) 33.6 gram/dL 33.0-36.0 RED CELL DISTRIBUTION WIDTH (test code=RDW) 11.9 % 11.6-16.2 RED CELL DISTRIBUTION WIDTH SD (test code=RDW-SD) 38.8 fL 37.0-51.0 PLATELET COUNT (test code=PLT) 272 K/mm3 150-450 MEAN PLATELET VOLUME (test code=MPV) 10.2 fL 6.7-11.0 - XR CHEST 2 [id number] 23:05:00 FAX: Marko Gonzalez DO [place]: [address]: [facility] [birth year] Age/S: 28/F [address] [facility] [address] Unit #: [id number] Loc: V.NCER [address] Phys: CarlosMarko [place], [place] [address] Acct: [id number] Dis Date: Status: REG ER PHONE #: Exam Date: 07/07/2018 2237 FAX #: Reason: CHEST PAIN EXAMS: CPT CODE: [id number] XR CHEST 2 V 76002 REASON FOR EXAM: CHEST PAIN Exam Order Date: 07/07/2018 10:26 PM Ordering Himanshu: Marko Gonzalez DO PROCEDURE: - XR CHEST 2 V COMPARISON: FINDINGS: PA and lateral views of the chest show clear lungs without evidence of consolidation. No evidence of effusion. The heart size is within normal limits. Pulmonary vasculatures are unremarkable. The osseous structures are grossly intact. IMPRESSION: No active d isease. at 2304 Reported and signed by: Solomon Graham M.D. CC: Marko Gonzalez DO Technologist: [facility] Date/Time/By: 07/07 (3508) : By: Rick Orig Print D/T: S: 07/07/2018 (3758) PAGE 1 Signed Report URINALYSIS [id number] 22:45:00* Test Item Value Reference Range Comments UA COLOR (test code=COLU) YELLOW YELLOW UA APPEARANCE (test code=APPU) CLEAR CLEAR UA GLUCOSE DIPSTICK (test code=DGLUU) NORMAL mg/dL NEGATIVE UA BILIRUBIN DIPSTICK (test code=BILU) NEGATIVE mg/dL NEGATIVE UA KETONE DIPSTICK (test code=KETU) neg mg/dL NEGATIVE UA SPECIFIC GRAVITY (test code=SGU) 1.015 1.001-1.035 UA BLOOD DIPSTICK (test code=WALDEMAR) neg Goldy/uL NEGATIVE UA PH DIPSTICK (test code=MICHAEL) 8.0 5.0-8.0 UA PROTEIN DIPSTICK (test code=PROU) neg mg/dL Neg-15 UA UROBILINIOGEN DIPSTICK (test code=URO) 1 mg/dL 0.0-0.2 UA NITRITE DIPSTICK (test code=EARNEST) NEGATIVE NEGATIVE UA LEUKOCYTE ESTERASE DIPSTICK (test code=LEUU) NEGATIVE uL NEGATIVE UA WBC (test code=WBCU) 0-5 per HPF 0-5 IN SOME URINARY TRACT INFECTIONS THERE MAY NOT BE ENOUGHWBCs IN THE URINE TO TRIGGER AN AUTOMATIC (REFLEX) URINECULTURE. A SEPERATE ORDER FOR URINE CULTURE IS RECOMMENDEDIF THERE IS STRONG SUPPORT FOR A URINARY TRACT INFECTIONCLINICALLY. UA RBC (test code=RBCU) 0-2 per HPF 0-5 UA EPITHELIAL CELLS (test code=EPIU) Few (2-5/hpf) per HPF Few UA BACTERIA (test code=BACU) TRACE per HPF NONE Urine Source? Clean CatchUR HCG [id number] 22:45:00* Test Item Value Reference Range Comments UR HCG QUAL (test code=HCGQLU) NEGATIVE This HCGQL test is NOT applicable for MALE patients.Check with nurse about probable order error.If Tumor Marker Test needed, nurse should order test "HCGTU"(Test #[id number]) Urine Source? Clean CatchURINALYSIS [id number] 22:39:00* Test Item Value Reference Range Comments UA COLOR (test code=COLU) YELLOW YELLOW UA APPEARANCE (test code=APPU) CLEAR CLEAR UA GLUCOSE DIPSTICK (test code=DGLUU) NORMAL mg/dL NEGATIVE UA BILIRUBIN DIPSTICK (test code=BILU) NEGATIVE mg/dL NEGATIVE UA KETONE DIPSTICK (test code=KETU) neg mg/dL NEGATIVE UA SPECIFIC GRAVITY (test code=SGU) 1.015 1.001-1.035 UA BLOOD DIPSTICK (test code=WALDEMAR) neg Goldy/uL NEGATIVE UA PH DIPSTICK (test code=MICHAEL) 8.0 5.0-8.0 UA PROTEIN DIPSTICK (test code=PROU) neg mg/dL Neg-15 UA UROBILINIOGEN DIPSTICK (test code=URO) 1 mg/dL 0.0-0.2 UA NITRITE DIPSTICK (test code=EARNEST) NEGATIVE NEGATIVE UA LEUKOCYTE ESTERASE DIPSTICK (test code=LEUU) NEGATIVE uL NEGATIVE UA WBC (test code=WBCU) per HPF 0-5 Urine Source? Clean CatchUR HCG [id number] 22:39:00* Test Item Value Reference Range Comments UR HCG QUAL (test code=HCGQLU) Urine Source? Clean Catch
== END 2018-07-08 22:33 | disposition left against medical advice (07) ==
LOC: FSED 22:25
DX: R07.89 Other chest pain (principal)